=== PATIENT | female | born 1985 | race African-American/Black ===

== ENCOUNTER 2020-05-16 11:33 | Emergency (ER) | payer OTHER ==
[~2020-05-16] VITALS: Ht 160 cm; Wt 61.2 kg
[2020-05-16] MEDS ORDERED: ONDANSETRON HCL4 M2 PO (12:24)
[2020-05-16] MEDS ORDERED: NORCO 5-325 TA1 EAC1 PO (12:24)
[2020-05-16 12:45] VITALS: BP 102/65
== END 2020-05-16 12:45 | disposition home or self-care (01) ==
LOC: ER 11:33
DX: S83.91XA Sprain of unspecified site of right knee, initial encounter (principal); R51 Headache; V49.59XA Passenger injured in collision with other motor vehicles in traffic accident, initial encounter; Y93.89 Activity, other specified; Y92.410 Unspecified street and highway as the place of occurrence of the external cause; Y99.8 Other external cause status

== ENCOUNTER 2020-09-05 09:31 | Emergency (ER) | payer OTHER ==
[~2020-09-05] VITALS: Ht 160 cm; Wt 60.8 kg
[~2020-09-05 09:31] MED LIST: NORCO 5-325 TA1 EAC1 PO; ONDANSETRON HCL4 M2 PO
[2020-09-05 09:33] VITALS: BP 156/100
[2020-09-05] MEDS ORDERED: PENICILLIN VK500 M1 PO (10:18)
[2020-09-05] MEDS ORDERED: MOBIC15 MG PO (10:18)
== END 2020-09-05 10:53 | disposition home or self-care (01) ==
LOC: ER 09:31
DX: K04.7 Periapical abscess without sinus (principal)

== ENCOUNTER 2020-09-08 08:17 | Emergency (ER) | payer OTHER ==
[~2020-09-08] VITALS: Ht 162.6 cm; Wt 63.5 kg
[~2020-09-08 08:17] MED LIST changes: +MOBIC15 MG PO; +PENICILLIN VK500 M1 PO
[2020-09-08 08:25] VITALS: BP 162/89
[2020-09-08] MEDS ORDERED: CLINDAMYCIN HC150 MG PO (08:37)
[2020-09-08] MEDS ORDERED: BENADRYL25 MG PO (08:37)
== END 2020-09-08 08:55 | disposition home or self-care (01) ==
LOC: ER 08:17
DX: L29.9 Pruritus, unspecified (principal); T36.0X5A Adverse effect of penicillins, initial encounter; Z79.2 Long term (current) use of antibiotics; Z79.899 Other long term (current) drug therapy; Y92.89 Other specified places as the place of occurrence of the external cause

== ENCOUNTER 2020-11-04 09:10 | Emergency (ER) | payer OTHER ==
[~2020-11-04] VITALS: Ht 160 cm; Wt 61.2 kg
[~2020-11-04 09:10] MED LIST changes: +BENADRYL25 MG PO; +CLINDAMYCIN HC150 MG PO
[2020-11-04 09:13] VITALS: BP 140/87
[2020-11-04] MEDS ORDERED: NOHOMEMEDICATIONS (09:26)
[2020-11-04] MEDS ORDERED: CLEOCIN HCL150 MG PO (10:02)
== END 2020-11-04 10:06 | disposition home or self-care (01) ==
LOC: ER 09:10
DX: K04.7 Periapical abscess without sinus (principal); Z88.0 Allergy status to penicillin

== ENCOUNTER 2020-12-20 16:57 | Emergency (ER) | payer OTHER ==
[~2020-12-20] VITALS: Ht 160 cm; Wt 60.8 kg
[~2020-12-20 16:57] MED LIST changes: +CLEOCIN HCL150 MG PO; +NOHOMEMEDICATIONS
[2020-12-20] MEDS ORDERED: NOHOMEMEDICATIONS (17:40)
[2020-12-20] MEDS ORDERED: CLEOCIN HCL300 MG PO (17:51)
[2020-12-20 19:07] VITALS: BP 155/78
== END 2020-12-20 19:08 | disposition home or self-care (01) ==
LOC: ER 16:57
DX: K04.7 Periapical abscess without sinus (principal); Z88.0 Allergy status to penicillin

== ENCOUNTER 2021-03-22 13:38 | Emergency (ER) | payer OTHER ==
[~2021-03-22] VITALS: Ht 157.5 cm; Wt 60.3 kg
[~2021-03-22 13:38] MED LIST changes: +CLEOCIN HCL300 MG PO
[2021-03-22 13:41] VITALS: BP 171/92
[2021-03-22] MEDS ORDERED: CLEOCIN HCL300 MG PO (13:51)
== END 2021-03-22 14:08 | disposition home or self-care (01) ==
LOC: ER 13:38
DX: R22.0 Localized swelling, mass and lump, head (principal); Z88.0 Allergy status to penicillin